=== PATIENT | female | born 1980 | race Caucasian/White ===

== ENCOUNTER 2020-12-10 13:15 | Outpatient (CLI) | payer OTHER ==
[2020-12-10 14:46] LABS: HEMOGLOBIN 11.8 gm/dl (12.3-15.3); RED BLOOD COUNT 3.88 M/UL (4.00-5.10); WHITE BLOOD COUNT 5.8 K/UL (4.5-11.0)
[2020-12-11] MEDS ORDERED: FERROUS SULFAT325 M2 PO (06:25)
[2020-12-11] MEDS ORDERED: PRILOSEC OTC20 MG PO (06:25)
[2020-12-11] MEDS ORDERED: PRENATABS FA T1 EACH PO (06:25)
== END 2020-12-10 14:17 | disposition home or self-care (01) ==
LOC: GENOP 13:15
PROVIDERS: Obstetrics & Gynecology
DX: Z01.812 Encounter for preprocedural laboratory examination (principal)
CPT/HCPCS: 36415; 81001; 85025

== ENCOUNTER 2020-12-11 05:31 | Inpatient (IN) | payer OTHER ==
[~2020-12-11] VITALS: Ht 175.3 cm; Wt 124.3 kg
[2020-12-11] MEDS ORDERED: FERROUS SULFAT325 M2 PO (06:25)
[2020-12-11] MEDS ORDERED: PRILOSEC OTC20 MG PO (06:25)
[2020-12-11] MEDS ORDERED: PRENATABS FA T1 EACH PO (06:25)
[2020-12-12 06:57] LABS: HEMOGLOBIN 9.8 gm/dl (12.3-15.3)
[2020-12-12] MEDS ORDERED: IBUPROFEN600 MG PO (10:02)
[2020-12-12] MEDS ORDERED: DOCUSATE SODIU100 MG PO (10:02)
[2020-12-12] MEDS ORDERED: HYDROCODON-ACE1 EAC4 PO (10:02)
== END 2020-12-12 15:51 | disposition home or self-care (01) | DRG 788 ==
LOC: OB 05:31
PROVIDERS: ADMIT Obstetrics & Gynecology
PROC: 10D00Z1 Extraction of Products of Conception, Low, Open Approach (ICD-10-PCS; principal; 2020-12-11 07:30)
DX: O34.211 Maternal care for low transverse scar from previous cesarean delivery (principal); J30.2 Other seasonal allergic rhinitis; Z72.0 Tobacco use; Z82.49 Family history of ischemic heart disease and other diseases of the circulatory system; Z83.3 Family history of diabetes mellitus; Z90.49 Acquired absence of other specified parts of digestive tract; Z3A.39 39 weeks gestation of pregnancy; Z37.0 Single live birth
CPT/HCPCS: 36415; 81001; 82800; 85014; 85018; 85025; 90715; C9113; J0690; J1885; J2274; J2405; J2590; J3010; J7120; U0003